=== PATIENT | male | born 1995 | race African-American/Black ===

== ENCOUNTER 2024-05-08 07:08 | Emergency (ER) | payer BC ==
[2024-05-08] MEDS ORDERED: KETOROLAC 30 MG/ML INJ ONE (07:36)
[2024-05-08 07:46] LABS: Absolute Eosinophils 0.2 K/uL (0-0.5); Absolute Lymphocytes (CBC) 1.1 K/uL (0.7-4.9); Absolute Monocytes 0.6 K/uL (0.1-1.3); Absolute Neutrophil 6.8 K/uL (1.8-8.0); Basophils % 0.4 % (0-1.3); Hematocrit 48.5 % (39.6-49.0); Hemoglobin 16.5 g/dL (13.6-17.9); Lymphocytes % 12.1 % (15.3-44.8); MCH 31.3 pg (27.0-35.0); MPV 8.2 fL (7.6-11.3); Monocytes % 6.9 % (3.3-12.3); Neutrophils % 78.6 % (41.7-73.7); Nucleated Red Blood Cells % 0.1 % (0-0); Platelets 240 thou/uL (152-406); RBC Red Blood Cell Count 5.27 M/uL (4.33-5.43)
--- NOTE | 2024-05-08 07:54 | RAD REPORT ---
EXAM DESCRIPTION: RAD - Chest Single View - 05/08/2024 7:44 am CLINICAL HISTORY: CHEST PAIN Chest pain. COMPARISON: No comparisons FINDINGS: Portable technique limits examination quality. The lungs are grossly clear. The heart is upper limit of normal in size. No displaced fractures. IMPRESSION: No acute intrathoracic process suspected.
[2024-05-08 08:09] LABS: ALT/SGPT 24 U/L (16-61); AST/SGOT 17 U/L (15-37); Albumin 3.9 g/dL (3.4-5.0); Albumin/Globulin Ratio 1.1 (1.1-1.8); Alkaline Phosphatase 74 U/L (45-117); BUN Blood Urea Nitrogen 16 mg/dL (7-18); Bicarbonate 27 mEq/L (21-32); Bilirubin Total 0.6 mg/dL (0.2-1.0); Globulin 3.7 g/dL (2.3-3.5); Glomerular Filtration Rate 93 ml/min (=/>90); Glucose Level 102 mg/dL (74-106); Magnesium 1.8 mg/dL (1.6-2.4); Protein, Total 7.6 g/dL (6.4-8.2); Sodium Level 136 mEq/L (136-145); Troponin High Sensitivity 3.7 pg/mL (<58.9)
[2024-05-08 08:10] LABS: Bilirubin Direct < 0.2 mg/dL (0-0.2); Bilirubin Indirect, Calculated 0.4 mg/dL (0.2-0.8)
--- NOTE | 2024-05-08 08:54 | ER ---
Nurse's Notes [facility] Name: Jose Grant Age: 28 yrs Sex: Male : 1995 Arrival Date: 05/08/2024 Time: 07:08 Bed 7 Private MD: Diagnosis: Chest pain, unspecified Presentation: 05/08 07:28 Chief complaint: Patient states: chest pain that started this morning. Coronavirus rs5 screen: At this time, the client does not indicate any symptoms associated with coronavirus-19. Ebola Screen: No symptoms or risks identified at this time. Initial Sepsis Screen: Does the patient meet any 2 criteria? No. Patient's initial sepsis screen is negative. Does the patient have a suspected source of infection? No. Patient's initial sepsis screen is negative. Risk Assessment: Do you want to hurt yourself or someone else? Patient reports no desire to harm self or others. Onset of symptoms was May 08, 2024. 07:28 Method Of Arrival: Ambulatory rs5 07:28 Acuity: [place] 3 rs5 Historical: - Allergies: 07:29 No Known Allergies; rs5 - PMHx: 07:29 None; rs5 - PSHx: 07:29 knee repair bilat; rs5 - Immunization history:: Adult Immunizations up to date. - Infectious Disease History:: Denies. - Social history:: Smoking status: Patient denies any tobacco usage or history of. - Family history:: not pertinent. Screenin:29 [facility] ED Fall Risk Assessment (Adult) History of falling in the last 3 months, rs5 including since admission No falls in past 3 months (0 pts) Confusion or Disorientation No (0 pts) Intoxicated or Sedated No (0 pts) Impaired Gait No (0 pts) Mobility Assist Device Used No (0 pt) Altered Elimination No (0 pt) Score/Fall Risk Level 0 - 2 = Low Risk Oriented to surroundings, Maintained a safe environment. Abuse screen: Denies threats or abuse. Nutritional screening: No deficits noted. Tuberculosis screening: No symptoms or risk factors identified. Assessment: 07:30 General: Appears in no apparent distress. uncomfortable, Behavior is calm, cooperative. rs5 Pain: Complains of pain in chest Pain does not radiate. Pain currently is 6 out of 10 on a pain scale. Quality of pain is described as aching, Pain began Is continuous. Neuro: Level of Consciousness is awake, alert, obeys commands, Oriented to person, place, time, situation. Cardiovascular: Patient's skin is warm and dry. Respiratory: Airway is patent Respiratory effort is even, unlabored, Respiratory pattern is regular, symmetrical. GI: Abdomen is round non-distended, Abd is soft and non tender X 4 quads. : No signs and/or symptoms were reported regarding the genitourinary system. EENT: No signs and/or symptoms were reported regarding the EENT system. Derm: Skin is intact, Skin is pink, warm \T\ dry. Musculoskeletal: Range of motion: intact in all extremities. 08:25 Reassessment: Patient and/or family updated on plan of care and expected duration. Pain rs5 level reassessed. Patient is alert, oriented x 3, equal unlabored respirations, skin warm/dry/pink. 09:03 Reassessment: Patient and/or family updated on plan of care and expected duration. Pain rs5 level reassessed. Patient is alert, oriented x 3, equal unlabored respirations, skin warm/dry/pink. Patient denies pain at this time. Patient states feeling better. Vital Signs: 07:28 BP 150 / 97; Pulse 88; Resp 17; Temp 97.9(O); Pulse Ox 99% on R/A; rs5 09:02 BP 135 / 80; Pulse 86; Resp 16; Temp 98(O); Pulse Ox 99% on R/A; rs5 ED Course: 07:17 Patient arrived in ED. [id number] 07:18 Jv Coleman, AV is Primary Nurse. rs5 07:21 Yakov Armendariz MD is Attending Physician. rt 07:29 Triage completed. rs5 07:29 Patient has correct armband on for positive identification. Placed in gown. Bed in low rs5 position. Call light in reach. Side rails up X2. Client placed on continuous cardiac and pulse oximetry monitoring. NIBP monitoring applied. product lead on. 07:31 No provider procedures requiring assistance completed. rs5 07:32 Initial lab(s) drawn, by me, sent to lab. Inserted saline lock: 20 gauge in left zm antecubital area, using aseptic technique. Blood collected. Flushed with 10 mL NS. 07:34 XRAY Chest (1 view) Sent. zm 07:46 XRAY Chest (1 view) In Process Unspecified. EDMS 09:03 IV discontinued, intact, bleeding controlled, No redness/swelling at site. Pressure rs5 dressing applied. Administered Medications: 07:44 Drug: Ketorolac IVP 15 mg IVP once Route: IVP; Site: left antecubital; rs5 08:05 Follow up: Response: No adverse reaction; Pain is decreased rs5 Medication: 07:30 VIS not applicable for this client. rs5 Outcome: 08:54 Discharge ordered by MD. rt 09:03 Discharged to home ambulatory, rs5 09:03 Condition: stable 09:03 Discharge instructions given to patient, family, Instructed on discharge instructions, follow up and referral plans. Demonstrated understanding of instructions, follow-up care, 09:03 Patient left the ED. rs5 Signatures: Dispatcher [employer] EDMS Mayra Adina jHaydee Mcfarland Ryan, MD MD rt Jv Coleman RN RN rs5 Corrections: (The following items were deleted from the chart) 09:03 09:02 BP 135 / 80; Pulse 86bpm; Resp 16bpm; Pulse Ox 99% RA; rs5 rs5
--- NOTE | 2024-05-08 08:54 | EDPHYS ---
Physician Documentation [facility] Name: Jose Grant Age: 28 yrs Sex: Male : 1995 Arrival Date: 05/08/2024 Time: 07:08 Bed 7 Private MD: ED Physician Yakov Armendariz HPI: 05/08 08:00 This 28 yrs old Black Male presents to ER via Ambulatory with complaints of Chest Pain. rt 08:00 Patient presents to the ED with chest pain first noticed this morning when he woke up. rt Patient denies difficulty breathing but notices that the pain is worse when he takes a deep breath. The patient denies nausea, vomiting, dizziness. Denies other acute complaints at this time, symptoms are moderate in severity, no other aggravating or alleviating factors.. Historical: - Allergies: 07:29 No Known Allergies; rs5 - PMHx: 07:29 None; rs5 - PSHx: 07:29 knee repair bilat; rs5 - Immunization history:: Adult Immunizations up to date. - Infectious Disease History:: Denies. - Social history:: Smoking status: Patient denies any tobacco usage or history of. - Family history:: not pertinent. ROS: 08:00 Constitutional: Negative for fever, chills, and weight loss, Respiratory: Negative for rt shortness of breath, cough, wheezing, and pleuritic chest pain, Abdomen/GI: Negative for abdominal pain, nausea, vomiting, diarrhea, and constipation, Skin: Negative for injury, rash, and discoloration, Neuro: Negative for headache, weakness, numbness, tingling, and seizure, Psych: Negative for depression, anxiety, suicide ideation, homicidal ideation, and hallucinations, 08:00 Cardiovascular: Positive for chest pain, Negative for edema, Exam: 08:00 Constitutional: This is a well developed, well nourished patient who is awake, alert, rt and in no acute distress. Head/Face: Normocephalic, atraumatic. Chest/axilla: Normal chest wall appearance and motion. Nontender with no deformity. No lesions are appreciated. Cardiovascular: Regular rate and rhythm with a normal S1 and S2. No gallops, murmurs, or rubs. Normal PMI, no JVD. No pulse deficits. Respiratory: Lungs have equal breath sounds bilaterally, clear to auscultation and percussion. No rales, rhonchi or wheezes noted. No increased work of breathing, no retractions or nasal flaring. Abdomen/GI: Soft, non-tender, with normal bowel sounds. No distension or tympany. No guarding or rebound. No evidence of tenderness throughout. Skin: Warm, dry with normal turgor. Normal color with no rashes, no lesions, and no evidence of cellulitis. MS/ Extremity: Pulses equal, no cyanosis. Neurovascular intact. Full, normal range of motion. Neuro: Awake and alert, GCS 15, oriented to person, place, time, and situation. Cranial nerves II-XII grossly intact. Motor strength 5/5 in all extremities. Sensory grossly intact. Cerebellar exam normal. Normal gait. 08:00 ECG was reviewed by the Attending Physician. Vital Signs: 07:28 BP 150 / 97; Pulse 88; Resp 17; Temp 97.9(O); Pulse Ox 99% on R/A; rs5 09:02 BP 135 / 80; Pulse 86; Resp 16; Temp 98(O); Pulse Ox 99% on R/A; rs5 MDM: 07:27 Patient medically screened. rt 09:33 Differential diagnosis: acute myocardial infarction, acute pericarditis, chest wall rt pain, pneumonia, pneumothorax, pulmonary embolus. HEART Score: History: Slightly Suspicious (0), ECG: Normal (0), Age: < or = 45 years (0), Risk Factors: No Risk Factors Known (0), Troponin: < or = 1 x Normal Limit (0), Total Score = 0. Data reviewed: vital signs, nurses notes, lab test result(s), EKG, radiologic studies. I considered the following discharge prescriptions or medication management in the emergency department Medications were administered in the Emergency Department. See MAR. Independent interpretation of the following test(s) in the Emergency Department X-Ray: My interpretation is No pneumothorax seen on interpretation of x-ray images. Test considered but Not performed: CT: D-dimer negative, CT angiogram not necessary. Counseling: I had a detailed discussion with the patient and/or guardian regarding the historical points, exam findings, and any diagnostic results supporting the discharge/admit diagnosis, lab results, radiology results, the need for outpatient follow up, to return to the emergency department if symptoms worsen or persist or if there are any questions or concerns that arise at home. Response to treatment: the patient's symptoms have resolved after treatment, the patient's pain is gone. 05/08 07:32 Order name: Basic Metabolic Panel; Complete Time: 08:10 rt 05/08 07:32 Order name: CBC with Diff; Complete Time: 07:55 rt 05/08 07:32 Order name: D-Dimer; Complete Time: 08:10 rt 05/08 07:32 Order name: LFT's; Complete Time: 08:10 rt 05/08 07:32 Order name: Magnesium; Complete Time: 08:10 rt 05/08 07:32 Order name: Troponin HS; Complete Time: 08:10 rt 05/08 07:32 Order name: XRAY Chest (1 view); Complete Time: 07:55 rt 05/08 07:32 Order name: EKG; Complete Time: 07:32 rt 05/08 07:32 Order name: Cardiac monitoring; Complete Time: 07:35 rt 05/08 07:32 Order name: EKG - Nurse/Tech; Complete Time: 07:35 rt 05/08 07:32 Order name: IV Saline Lock; Complete Time: 07:32 rt 05/08 07:32 Order name: Labs collected and sent; Complete Time: 07:32 rt 05/08 07:32 Order name: O2 Per Protocol; Complete Time: 07:35 rt 05/08 07:32 Order name: O2 Sat Monitoring; Complete Time: 07:35 rt EC:00 Rate is 100 beats/min. Rhythm is regular, Normal Sinus Rhythm with No ectopy. QRS Moran rt is Normal. PA interval is normal. QRS interval is normal. QT interval is normal. No Q waves. T waves are Normal. No ST changes noted. Interpreted by me. Administered Medications: 07:44 Drug: Ketorolac IVP 15 mg IVP once Route: IVP; Site: left antecubital; rs5 08:05 Follow up: Response: No adverse reaction; Pain is decreased rs5 Disposition Summary: 05/08/24 08:54 Discharge Ordered Notes: Location: Home rt Problem: new rt Symptoms: have improved rt Condition: Stable rt Diagnosis - Chest pain, unspecified rt Followup: rt - With: Private Physician - When: 2 - 3 days - Reason: Discharge Instructions: - Discharge Summary Sheet rt - Nonspecific Chest Pain, Adult rt - Chest Wall Pain rt Forms: - Medication Reconciliation Form rt - Antibiotic Education rt - Prescription Opioid Use rt - Patient Portal Instructions rt - Leadership Thank You Letter rt Signatures: Dispatcher [employer] EDMS Yakov Armendariz MD MD rt Jv Coleman, RN RN rs5 Corrections: (The following items were deleted from the chart) 07:32 07:32 BASIC METABOLIC PANEL+C.LAB.BRZ ordered. EDMS EDMS 07:32 07:32 CBC+H.LAB.BRZ ordered. EDMS EDMS 07:32 07:32 D-DIMER+COAG.LAB.BRZ ordered. EDMS EDMS 07:32 07:32 HEPATIC FUNCTION+C.LAB.BRZ ordered. EDMS EDMS 07:32 07:32 MAGNESIUM+C.LAB.BRZ ordered. EDMS EDMS 07:32 07:32 Troponin High Sensitivity+C.LAB.BRZ ordered. EDMS EDMS
[2024-05-08 09:15] VITALS: O2SAT 99
[2024-05-08 09:21] VITALS: BP 135/80; TEMP 98
--- NOTE | 2024-05-09 16:58 | EKG ---
Test Date: 2024-05-08 Test Time: 07:26:14 Special Librarian: NIGEL MEASUREMENT RESULTS: Intervals: Rate: 100 PA: 140 QRSD: 90 QT: 326 QTc: 420 [place]: P: 77 PA: 140 QRS: 83 T: 58 INTERPRETIVE STATEMENTS: Normal sinus rhythm Right atrial enlargement Borderline ECG No previous ECG available for comparison Electronically Signed On 05-09-24 16:53:30 CDT by Jose Elias Bowles
== END 2024-05-08 09:03 | disposition home or self-care (01) ==
LOC: ER 07:08
DX: R07.9 Chest pain, unspecified (principal)
CPT/HCPCS: 36415; 71045; 80048; 80076; 83735; 84484; 85025; 85379; 93005; 96374; 99285